=== PATIENT | male | born 1975 | race Caucasian/White ===

== ENCOUNTER 2021-08-26 09:33 | Outpatient (REF) | payer OTHER, SELFPAY ==
[2021-08-26 10:57] LABS: Binax Now Covid-19 Ag Negative (Negative)
[2021-08-26 10:58] LABS: Binax Internal Control QC Valid
== END 2021-08-26 09:34 | disposition home or self-care (01) ==
LOC: HO.LAB 09:33
PROVIDERS: Visit Provider Internal Medicine
DX: Z20.822 Contact with and (suspected) exposure to COVID-19 (principal)
CPT/HCPCS: C9803